=== PATIENT | male | born 1995 | race American Indian/Alaskan Native ===

== ENCOUNTER 2020-08-29 08:26 | Emergency (ER) | payer SELFPAY ==
--- NOTE | 2020-08-29 09:25 | XRay Report ---
LEFT SHOULDER 3 VIEW(S) INDICATION / CLINICAL INFORMATION: Pain after fall COMPARISON: None available. FINDINGS: BONES / JOINT(S): No acute fracture or subluxation. No significant arthritis. SOFT TISSUES: No significant abnormality. ADDITIONAL FINDINGS: None. IMPRESSION: No acute osseous findings in the left shoulder. Signer Name: Salazar Foster MD Signed: 08/29/2020 9:21 AM Workstation Name: [id number]
[2020-08-29] MEDS ORDERED: KETOROLAC 30 MG/1 ML INJ IV ONE (09:31)
--- NOTE | 2020-08-29 09:34 | Emergency Department Report ---
HPI - General Chief Complaint: Extremity Injury, Upper Time Seen by Provider: 08/29/20 09:25 - HPI HPI: Room 2 The patient is a 24-year-old male present with a chief complaint of left shoulder pain. Patient states he was standing in the shower when he slipped and his stopped his fall by grabbing onto a rail using his left hand. The patient states this motion dislocated his left shoulder. Patient states he wiggled his arm and eventually felt as though he reduce his shoulder. Patient states this morning he continued to have pain in the left shoulder prompted him to come to the emergency department. Patient denies any blunt trauma to the left shoulder stating he did not fall ED Past Medical Hx - Past Medical History Previous Medical History?: No - Surgical History Past Surgical History?: Yes Additional Surgical History: right knee - Family History Family history: no significant - Social History Smoking Status: Current Every Day Smoker (1/7 pack/day) Substance Use Type: None (Denies illicit drug use), Alcohol (Occasional) - Medications Home Medications: Home Medications Medication Instructions Recorded Confirmed Last Taken Type Cyclobenzaprine [Flexeril] 10 mg PO TID PRN #10 tablet 08/29/20 Unknown Rx HYDROcodone/APAP 5-325 [[place] 1 - 2 each PO Q6HR PRN #14 tablet 08/29/20 Unknown Rx 5/325] Ibuprofen [Motrin 800 MG tab] 800 mg PO Q8HR PRN #20 tablet 08/29/20 Unknown Rx ED Review of Systems ROS: Stated complaint: POSS DISLOCATION OF SHOULDER Other details as noted in HPI Constitutional: no symptoms reported Eyes: denies: eye pain ENT: denies: ear pain Respiratory: no symptoms reported Cardiovascular: denies: chest pain Endocrine: no symptoms reported Gastrointestinal: denies: abdominal pain Genitourinary: denies: dysuria Musculoskeletal: arthralgia Neurological: denies: headache Physical Exam - Physical Exam Vital Signs: Vital Signs 08/29/20 08:34 Temperature 98.2 F Pulse Rate 129 H Respiratory 19 Rate Blood Pressure 153/110 O2 Sat by Pulse 95 Oximetry Physical Exam: GENERAL: The patient is well-developed well-nourished male lying on stretcher not appearing to be in acute distress. [] HEENT: Normocephalic. Atraumatic. Extraocular motions are intact. Patient has moist mucous membranes. NECK: Supple. Trachea midline CHEST/LUNGS: There is no respiratory distress noted. HEART/CARDIOVASCULAR: Regular. There is no tachycardia. 2+ left radial pulse ABDOMEN: There is no abdominal distention. SKIN: There is no rash. There is no edema. There is no diaphoresis. NEURO: The patient is awake, alert, and oriented. The patient is cooperative. The patient has normal speech MUSCULOSKELETAL: There is decreased range of motion of the left shoulder secondary to pain. There is no evidence of acute injury. ED Course Vital Signs 08/29/20 08:34 Temperature 98.2 F Pulse Rate 129 H Respiratory 19 Rate Blood Pressure 153/110 O2 Sat by Pulse 95 Oximetry ED Medical Decision Making - Radiology Data Radiology results: report reviewed (Left shoulder x-ray), image reviewed (Left shoulder x-ray) interpreted by me: Left shoulder x-ray-no acute fracture, no dislocation, no foreign body seen [facility] [address] [place] [address] XRay Report Signed Patient: RICHARD VERA MR#: [id number] : 1995 Acct:[id number] Age/Sex: 24 / M ADM Date: 08/29/20 Loc: ED Attending Dr: Ordering Physician: LORA LOZA MD Date of Service: 08/29/20 Procedure(s): XR shoulder 2+V LT Accession Number(s): [id number] cc: LORA LOZA MD Fluoro Time In Minutes: LEFT SHOULDER 3 VIEW(S) INDICATION / CLINICAL INFORMATION: Pain after fall COMPARISON: None available. FINDINGS: BONES / JOINT(S): No acute fracture or subluxation. No significant arthritis. SOFT TISSUES: No significant abnormality. ADDITIONAL FINDINGS: None. IMPRESSION: No acute osseous findings in the left shoulder. Signer Name: Basia Foster MD Signed: 08/29/2020 9:21 AM Workstation Name: [id number] Transcribed By: MALICK Dictated By: BASIA GARCIA MD Electronically Authenticated By: BASIA GARCIA MD Signed Date/Time: 08/29/20920 DD/ 9 TD/TT: - Differential Diagnosis Left shoulder dislocation, left shoulder soreness Critical care attestation.: If time is entered above; I have spent that time in minutes in the direct care of this critically ill patient, excluding procedure time. ED Disposition Clinical Impression: Left shoulder pain Disposition: DC- TO HOME OR SELFCARE Is pt being admited?: No Does the pt Need Aspirin: No Condition: Stable Instructions: Adhesive Capsulitis, Shoulder Dislocation Additional Instructions: Return to the emergency department should you develop worsening symptoms, inability to tolerate food or liquids, high fever or any other concerns Prescriptions: Cyclobenzaprine [Flexeril] 10 mg PO TID PRN #10 tablet PRN Reason: Muscle Spasm Ibuprofen [Motrin 800 MG tab] 800 mg PO Q8HR PRN #20 tablet PRN Reason: Pain, Moderate (4-6) HYDROcodone/APAP 5-325 [[place] 5/325] 1 - 2 each PO Q6HR PRN #14 tablet PRN Reason: Pain Referrals: DAVID RAY MD [Staff Physician] - 3-5 Days (Dr. Ray is an orthopedic surgeon. Please follow-up with him for further evaluation) Time of Disposition: 09:37
[2020-08-29 09:49] VITALS: BP 137/85
== END 2020-08-29 10:22 | disposition home or self-care (01) ==
LOC: ED 08:26
DX: M25.512 Pain in left shoulder (principal); F17.200 Nicotine dependence, unspecified, uncomplicated; Z79.899 Other long term (current) drug therapy
CPT/HCPCS: 73030; 96374; 99283; J1885